=== PATIENT | male | born 1975 | race Caucasian/White ===

== ENCOUNTER 2021-08-27 08:33 | Inpatient (IN) | payer OTHER ==
[2021-08-27 09:23] VITALS: BMI 27.5
[2021-08-27] MEDS ORDERED: BISMUTH SUBSALICYLATE 524 MG/30 ML PO PRN (09:54)
[2021-08-27] MEDS ORDERED: LORazepam 1 MG TABLET PO PRN (09:54)
[2021-08-27] MEDS ORDERED: MAGNESIUM HYDROX 2400MG/30ML ORAL SUSPENSION 30 ML CUP PO PRN (09:54)
[2021-08-27] MEDS ORDERED: BENZOCAINE/MENTHOL (CHLORASEPTIC ) LOZENGE MM PRN (09:54)
[2021-08-27] MEDS ORDERED: IBUPROFEN 600 MG TABLET (FP) PO PRN (09:54)
[2021-08-27] MEDS ORDERED: methaDONE HCL 10 MG TABLET (FOR DETOX USE ONLY) PO ONE (09:54)
[2021-08-27] MEDS ORDERED: MAG HYDROX/AL HYDROX/SIMETH 30 ML UNIT-DOSE CUP PO PRN (09:54)
[2021-08-27] MEDS ORDERED: ACETAMINOPHEN 325 MG TABLET (FP) PO PRN ×2 (09:54)
[2021-08-27] MEDS ORDERED: MAGNESIUM CITRATE 300 ML BOTTLE PO PRN (09:54)
[2021-08-27] MEDS ORDERED: IBUPROFEN 400 MG TABLET (FP) PO PRN (09:54)
[2021-08-27] MEDS ORDERED: LOPERAMIDE HCL 2 MG CAPSULE PO PRN (09:54)
[2021-08-27] MEDS ORDERED: METHOCARBAMOL 500 MG TABLET PO PRN (09:54)
[2021-08-27] MEDS ORDERED: DICYCLOMINE HCL 10 MG CAPSULE PO PRN (09:54)
[2021-08-27] MEDS ORDERED: cloNIDine HCL 0.1 MG TABLET PO PRN (09:54)
[2021-08-27] MEDS ORDERED: ONDANSETRON *ODT* 4 MG TABLET SL PRN (09:54)
[2021-08-27] MEDS: LORazepam 2 MG TABLET PO SCH ×3 (11:14→22:35)
[2021-08-27] MEDS: PRENATAL VITAMINS W/ FOLIC ACID TABLET (FP) PO SCH (11:15)
[2021-08-27] MEDS: hydrOXYzine PAMOATE 25 MG CAPSULE (FP) PO SCH ×4 (11:22→22:35)
[2021-08-27] MEDS: NICOTINE 21 MG/24 HOURS TOPICAL PATCH TD SCH (11:26)
[2021-08-27] MEDS: BACITRACIN 0.9 GM PACKET TP SCH ×2 (11:26→22:35)
[2021-08-27] MEDS: NICOTINE 10 MG CARTRIDGE (INHALER) IH PRN (12:03)
[2021-08-27 14:38] LABS: HEMATOCRIT 40.1 % (35.4-49); HEMOGLOBIN 13.7 GM/dL (11.7-16.9); MCH 31.4 pg (25.7-33.7); MCHC 34.2 g/dl (32.0-35.9); MEAN CELL VOLUME 91.8 fl (80-96); MEAN PLT VOLUME 9.2 fl (7.5-11.1); PLATELET COUNT 150 10^3/uL (134-434); RBC 4.37 M/mm3 (4.00-5.60); RDW 13.3 % (11.9-15.9); WHITE BLOOD COUNT 5.9 K/mm3 (4.0-10.0)
[2021-08-27 14:45] LABS: ALBUMIN 3.8 g/dl (3.4-5.0)
[2021-08-27 14:47] LABS: CALCIUM 9.4 mg/dL (8.5-10.1)
[2021-08-27 14:48] LABS: BILIRUBIN,TOTAL 0.6 mg/dL (0.2-1); BLOOD UREA NITROGEN 10.3 mg/dL (7-18)
[2021-08-27 14:51] LABS: CREATININE 0.9 mg/dL (0.55-1.3)
[2021-08-27 14:52] LABS: TOT PROT 7.3 g/dl (6.4-8.2)
[2021-08-27] MEDS: MELATONIN 5 MG TABLETS PO SCH (22:35)
[2021-08-27] MEDS: THIAMINE HCL 100 MG TABLET (FP) PO SCH (22:35)
[2021-08-28] MEDS: hydrOXYzine PAMOATE 25 MG CAPSULE (FP) PO SCH ×5 (05:14→22:12)
[2021-08-28] MEDS: LORazepam 2 MG TABLET PO SCH ×4 (05:14→22:12)
[2021-08-28] MEDS ORDERED: methaDONE HCL 10 MG TABLET (FOR DETOX USE ONLY) ONE (08:46)
[2021-08-28] MEDS: BACITRACIN 0.9 GM PACKET TP SCH ×2 (10:12→22:12)
[2021-08-28] MEDS: PRENATAL VITAMINS W/ FOLIC ACID TABLET (FP) PO SCH (10:12)
[2021-08-28] MEDS: NICOTINE 21 MG/24 HOURS TOPICAL PATCH TD SCH (10:14)
[2021-08-28] MEDS: NICOTINE 10 MG CARTRIDGE (INHALER) IH PRN ×2 (13:26→17:46)
[2021-08-28] MEDS: MELATONIN 5 MG TABLETS PO SCH (22:12)
[2021-08-28] MEDS: THIAMINE HCL 100 MG TABLET (FP) PO SCH (22:12)
[2021-08-29] MEDS ORDERED: LORazepam 1 MG TABLET PO SCH (05:00)
[2021-08-29] MEDS: hydrOXYzine PAMOATE 25 MG CAPSULE (FP) PO SCH (05:40)
[2021-08-29 09:16] VITALS: BP 137/87; PULSE 83; TEMP 97.7
[2021-08-29] MEDS ORDERED: methaDONE HCL 10 MG TABLET (FOR DETOX USE ONLY) PO ONE (10:00)
[2021-08-30] MEDS ORDERED: LORazepam 0.5 MG TABLET PO PRN
[2021-08-30] MEDS ORDERED: LORazepam 0.5 MG TABLET PO SCH (05:00)
[2021-08-31] MEDS ORDERED: LORazepam 0.5 MG TABLET PO ONE (05:00)
[2021-08-31] MEDS ORDERED: methaDONE HCL 10 MG TABLET (FOR DETOX USE ONLY) PO ONE (10:00)
== END 2021-08-29 12:20 | disposition left against medical advice (07) | DRG 770 ==
LOC: YASAS 08:33 → Y3N 10:32
PROVIDERS: ADMIT Allergy & Immunology; ATTEND Surgery
PROC: HZ2ZZZZ Detoxification Services for Substance Abuse Treatment (ICD-10-PCS; principal; 2021-08-27)
DX: F11.23 Opioid dependence with withdrawal (principal); F10.230 Alcohol dependence with withdrawal, uncomplicated; F13.230 Sedative, hypnotic or anxiolytic dependence with withdrawal, uncomplicated; F14.10 Cocaine abuse, uncomplicated; F17.210 Nicotine dependence, cigarettes, uncomplicated; Z86.19 Personal history of other infectious and parasitic diseases; Z28.310 Unvaccinated for COVID-19
CPT/HCPCS: 36415; 80053; 84450; 84460; 85027; 86780; 93005; 93010; C9803-CS; U0003; U0005

== ENCOUNTER 2021-09-21 13:18 | Inpatient (IN) | payer OTHER ==
[2021-09-21 16:32] VITALS: BMI 24.3
[2021-09-21] MEDS ORDERED: MELATONIN 5 MG TABLETS PO PRN (18:20)
[2021-09-21] MEDS ORDERED: BENZOCAINE/MENTHOL (CHLORASEPTIC ) LOZENGE MM PRN (18:20)
[2021-09-21] MEDS ORDERED: ONDANSETRON *ODT* 4 MG TABLET SL PRN (18:20)
[2021-09-21] MEDS ORDERED: MAGNESIUM HYDROX 2400MG/30ML ORAL SUSPENSION 30 ML CUP PO PRN (18:20)
[2021-09-21] MEDS ORDERED: MAG HYDROX/AL HYDROX/SIMETH 30 ML UNIT-DOSE CUP PO PRN (18:20)
[2021-09-21] MEDS ORDERED: P-EPHED 60MG/TRIPROLIDI 2.5MG TABLET PO PRN (18:20)
[2021-09-21] MEDS ORDERED: guaiFENesin 200 MG/10 ML 10 ML UNIT-DOSE CUPS PO PRN (18:20)
[2021-09-21] MEDS ORDERED: MAGNESIUM CITRATE 300 ML BOTTLE PO PRN (18:20)
[2021-09-21] MEDS ORDERED: hydrOXYzine PAMOATE 25 MG CAPSULE (FP) PO PRN (18:20)
[2021-09-21] MEDS ORDERED: IBUPROFEN 600 MG TABLET (FP) PO PRN (18:20)
[2021-09-21] MEDS ORDERED: IBUPROFEN 400 MG TABLET (FP) PO PRN (18:20)
[2021-09-21] MEDS ORDERED: BISMUTH SUBSALICYLATE 524 MG/30 ML PO PRN (18:20)
[2021-09-21] MEDS ORDERED: DICYCLOMINE HCL 10 MG CAPSULE PO PRN (18:20)
[2021-09-21] MEDS ORDERED: LOPERAMIDE HCL 2 MG CAPSULE PO PRN (18:20)
[2021-09-21] MEDS ORDERED: ACETAMINOPHEN 325 MG TABLET (FP) PO PRN ×2 (18:20)
[2021-09-21] MEDS ORDERED: chlordiazePOXIDE HCL 25 MG CAPSULE PO PRN (18:22)
[2021-09-21] MEDS ORDERED: cloNIDine HCL 0.1 MG TABLET PO PRN (18:23)
[2021-09-21] MEDS ORDERED: methaDONE HCL 10 MG TABLET (FOR DETOX USE ONLY) PO ONE (18:23)
[2021-09-21] MEDS: chlordiazePOXIDE HCL 25 MG CAPSULE PO SCH (22:35)
[2021-09-21] MEDS: THIAMINE HCL 100 MG TABLET (FP) PO SCH (22:35)
[2021-09-22] MEDS: chlordiazePOXIDE HCL 25 MG CAPSULE PO SCH ×4 (05:57→22:21)
[2021-09-22] MEDS ORDERED: methaDONE HCL 10 MG TABLET (FOR DETOX USE ONLY) ONE (08:49)
[2021-09-22] MEDS: NICOTINE POLACRILEX 2 MG GUM BUC PRN ×3 (09:20→22:23)
[2021-09-22] MEDS: PRENATAL VITAMINS W/ FOLIC ACID TABLET (FP) PO SCH (10:25)
[2021-09-22] MEDS: NICOTINE 21 MG/24 HOURS TOPICAL PATCH TD PRN (10:26)
[2021-09-22] MEDS: THIAMINE HCL 100 MG TABLET (FP) PO SCH (22:20)
[2021-09-23] MEDS: chlordiazePOXIDE HCL 25 MG CAPSULE PO SCH ×4 (06:05→22:52)
[2021-09-23] MEDS: NICOTINE POLACRILEX 2 MG GUM BUC PRN ×5 (07:44→22:55)
[2021-09-23] MEDS ORDERED: methaDONE HCL 10 MG TABLET (FOR DETOX USE ONLY) PO ONE (10:00)
[2021-09-23] MEDS: PRENATAL VITAMINS W/ FOLIC ACID TABLET (FP) PO SCH (10:03)
[2021-09-23] MEDS: NICOTINE 21 MG/24 HOURS TOPICAL PATCH TD PRN (10:04)
[2021-09-23] MEDS: METHOCARBAMOL 500 MG TABLET PO PRN (18:07)
[2021-09-23] MEDS: THIAMINE HCL 100 MG TABLET (FP) PO SCH (22:52)
[2021-09-24] MEDS ORDERED: chlordiazePOXIDE HCL 10 MG CAPSULE PO PRN
[2021-09-24] MEDS: chlordiazePOXIDE HCL 10 MG CAPSULE PO SCH ×4 (05:20→22:15)
[2021-09-24] MEDS ORDERED: methaDONE HCL 10 MG TABLET (FOR DETOX USE ONLY) ONE (09:56)
[2021-09-24] MEDS: PRENATAL VITAMINS W/ FOLIC ACID TABLET (FP) PO SCH (10:21)
[2021-09-24] MEDS: NICOTINE POLACRILEX 2 MG GUM BUC PRN ×3 (10:25→22:15)
[2021-09-24 22:05] VITALS: RESP 18
[2021-09-24] MEDS: THIAMINE HCL 100 MG TABLET (FP) PO SCH (22:15)
[2021-09-25] MEDS: chlordiazePOXIDE HCL 10 MG CAPSULE PO SCH ×2 (05:34→20:24)
[2021-09-25] MEDS: NICOTINE POLACRILEX 2 MG GUM BUC PRN ×2 (08:49→15:14)
[2021-09-25 09:35] LABS: HEMATOCRIT 43.6 % (35.4-49); HEMOGLOBIN 14.7 GM/dL (11.7-16.9); MCHC 33.7 g/dl (32.0-35.9); MEAN CELL VOLUME 91.9 fl (80-96); MEAN PLT VOLUME 9.2 fl (7.5-11.1); PLATELET COUNT 126 10^3/uL (134-434); RBC 4.74 M/mm3 (4.00-5.60); RDW 13.3 % (11.9-15.9); WHITE BLOOD COUNT 4.4 K/mm3 (4.0-10.0)
[2021-09-25] MEDS ORDERED: methaDONE HCL 10 MG TABLET (FOR DETOX USE ONLY) PO ONE (10:00)
[2021-09-25 10:10] LABS: ALBUMIN 3.4 g/dl (3.4-5.0); CALCIUM 9.5 mg/dL (8.5-10.1)
[2021-09-25] MEDS: PRENATAL VITAMINS W/ FOLIC ACID TABLET (FP) PO SCH (10:12)
[2021-09-25] MEDS: METHOCARBAMOL 500 MG TABLET PO PRN (10:12)
[2021-09-25 10:14] LABS: CREATININE 0.9 mg/dL (0.55-1.3)
[2021-09-25 10:19] LABS: BILIRUBIN,TOTAL 0.4 mg/dL (0.2-1)
[2021-09-25] MEDS: NICOTINE 21 MG/24 HOURS TOPICAL PATCH TD PRN (10:35)
[2021-09-25 18:12] VITALS: BP 111/74; PULSE 101; TEMP 97.8
[2021-09-26] MEDS ORDERED: chlordiazePOXIDE HCL 10 MG CAPSULE PO ONE (05:00)
== END 2021-09-25 17:05 | disposition home or self-care (01) | DRG 773 ==
LOC: YASAS 13:18 → Y3N 19:44
PROVIDERS: ADMIT Allergy & Immunology; ATTEND Surgery
PROC: HZ2ZZZZ Detoxification Services for Substance Abuse Treatment (ICD-10-PCS; principal; 2021-09-21)
DX: F11.23 Opioid dependence with withdrawal (principal); F10.230 Alcohol dependence with withdrawal, uncomplicated; F17.210 Nicotine dependence, cigarettes, uncomplicated; Z28.310 Unvaccinated for COVID-19
CPT/HCPCS: 36415; 80053; 85027; 86780; 87811; C9803-CS; U0003; U0005

== ENCOUNTER 2021-12-12 13:23 | Inpatient (IN) | payer OTHER ==
[2021-12-12 14:29] VITALS: BMI 24.0
[2021-12-12] MEDS ORDERED: DICYCLOMINE HCL 10 MG CAPSULE PO PRN (15:55)
[2021-12-12] MEDS ORDERED: LOPERAMIDE HCL 2 MG CAPSULE PO PRN (15:55)
[2021-12-12] MEDS ORDERED: BISMUTH SUBSALICYLATE 524 MG/30 ML PO PRN (15:55)
[2021-12-12] MEDS ORDERED: MAGNESIUM HYDROX 2400MG/30ML ORAL SUSPENSION 30 ML CUP PO PRN (15:55)
[2021-12-12] MEDS ORDERED: ACETAMINOPHEN 325 MG TABLET (FP) PO PRN ×2 (15:55)
[2021-12-12] MEDS ORDERED: BENZOCAINE/MENTHOL (CHLORASEPTIC ) LOZENGE MM PRN (15:55)
[2021-12-12] MEDS ORDERED: NICOTINE 10 MG CARTRIDGE (INHALER) IH PRN (15:55)
[2021-12-12] MEDS ORDERED: MAGNESIUM CITRATE 300 ML BOTTLE PO PRN (15:55)
[2021-12-12] MEDS ORDERED: IBUPROFEN 400 MG TABLET (FP) PO PRN (15:55)
[2021-12-12] MEDS ORDERED: ONDANSETRON *ODT* 4 MG TABLET SL PRN (15:55)
[2021-12-12] MEDS ORDERED: NALOXONE HCL (KLOXXADO) 8 MG SPRAY NS PRN (15:55)
[2021-12-12] MEDS ORDERED: MAG HYDROX/AL HYDROX/SIMETH 30 ML UNIT-DOSE CUP PO PRN (15:55)
[2021-12-12] MEDS ORDERED: MAG HYDROX/AL HYDROX/SIMETH 30 ML UNIT-DOSE CUP ONE (16:23)
[2021-12-12] MEDS: THIAMINE HCL 100 MG TABLET (FP) PO SCH (22:27)
[2021-12-12] MEDS: MELATONIN 5 MG TABLETS PO SCH (22:27)
[2021-12-13] MEDS ORDERED: diazePAM 5 MG TABLET PO PRN (10:53)
[2021-12-13] MEDS ORDERED: cloNIDine HCL 0.1 MG TABLET PO PRN (10:53)
[2021-12-13] MEDS: diazePAM 5 MG TABLET PO SCH ×3 (11:23→22:22)
[2021-12-13] MEDS: PRENATAL VITAMINS W/ FOLIC ACID TABLET (FP) PO SCH (11:23)
[2021-12-13] MEDS: NICOTINE 21 MG/24 HOURS TOPICAL PATCH TD SCH (11:25)
[2021-12-13] MEDS ORDERED: methaDONE HCL 10 MG TABLET (FOR DETOX USE ONLY) PO ONE (11:30)
[2021-12-13] MEDS: NICOTINE POLACRILEX 4 MG GUM BUC PRN (11:34)
[2021-12-13 12:17] LABS: HEMATOCRIT 39.5 % (35.4-49); HEMOGLOBIN 13.1 GM/dL (11.7-16.9); MCH 30.7 pg (25.7-33.7); MCHC 33.1 g/dl (32.0-35.9); MEAN CELL VOLUME 92.9 fl (80-96); MEAN PLT VOLUME 8.9 fl (7.5-11.1); PLATELET COUNT 162 10^3/uL (134-434); RBC 4.25 M/mm3 (4.00-5.60); RDW 13.3 % (11.9-15.9); WHITE BLOOD COUNT 3.7 K/mm3 (4.0-10.0)
[2021-12-13 12:21] LABS: BLOOD UREA NITROGEN 13.3 mg/dL (7-18); CALCIUM 9.1 mg/dL (8.5-10.1)
[2021-12-13 12:25] LABS: CREATININE 0.8 mg/dL (0.55-1.3)
[2021-12-13 12:26] LABS: BILIRUBIN,TOTAL 0.5 mg/dL (0.2-1)
[2021-12-13] MEDS: hydrOXYzine PAMOATE 25 MG CAPSULE (FP) PO PRN ×2 (18:56→22:22)
[2021-12-13] MEDS: MELATONIN 5 MG TABLETS PO SCH (22:22)
[2021-12-13] MEDS: THIAMINE HCL 100 MG TABLET (FP) PO SCH (22:22)
[2021-12-14] MEDS: diazePAM 5 MG TABLET PO SCH ×4 (05:34→22:23)
[2021-12-14] MEDS: PRENATAL VITAMINS W/ FOLIC ACID TABLET (FP) PO SCH (10:05)
[2021-12-14] MEDS: METHOCARBAMOL 500 MG TABLET PO PRN ×2 (10:06→17:40)
[2021-12-14] MEDS: NICOTINE 21 MG/24 HOURS TOPICAL PATCH TD SCH (10:06)
[2021-12-14] MEDS: NICOTINE POLACRILEX 4 MG GUM BUC PRN ×2 (10:08→15:43)
[2021-12-14] MEDS: IBUPROFEN 600 MG TABLET (FP) PO PRN (17:40)
[2021-12-14] MEDS: THIAMINE HCL 100 MG TABLET (FP) PO SCH (22:23)
[2021-12-14] MEDS: MELATONIN 5 MG TABLETS PO SCH (22:23)
[2021-12-15] MEDS: diazePAM 5 MG TABLET PO SCH ×3 (05:51→22:15)
[2021-12-15] MEDS: hydrOXYzine PAMOATE 25 MG CAPSULE (FP) PO PRN (05:51)
[2021-12-15] MEDS: NICOTINE POLACRILEX 4 MG GUM BUC PRN ×4 (05:54→22:16)
[2021-12-15] MEDS: IBUPROFEN 600 MG TABLET (FP) PO PRN (08:44)
[2021-12-15] MEDS: METHOCARBAMOL 500 MG TABLET PO PRN (08:44)
[2021-12-15] MEDS ORDERED: methaDONE HCL 10 MG TABLET (FOR DETOX USE ONLY) PO ONE (10:00)
[2021-12-15] MEDS: PRENATAL VITAMINS W/ FOLIC ACID TABLET (FP) PO SCH (10:12)
[2021-12-15] MEDS: NICOTINE 21 MG/24 HOURS TOPICAL PATCH TD SCH (10:13)
[2021-12-15] MEDS: MELATONIN 5 MG TABLETS PO SCH (22:15)
[2021-12-15] MEDS: THIAMINE HCL 100 MG TABLET (FP) PO SCH (22:15)
[2021-12-16] MEDS: hydrOXYzine PAMOATE 25 MG CAPSULE (FP) PO PRN (05:58)
[2021-12-16] MEDS: diazePAM 5 MG TABLET PO SCH ×2 (05:58→18:31)
[2021-12-16] MEDS ORDERED: cloNIDine HCL 0.1 MG TABLET PO PRN (09:42)
[2021-12-16] MEDS: PRENATAL VITAMINS W/ FOLIC ACID TABLET (FP) PO SCH (10:42)
[2021-12-16] MEDS: NICOTINE 21 MG/24 HOURS TOPICAL PATCH TD SCH (10:43)
[2021-12-16] MEDS: METHOCARBAMOL 500 MG TABLET PO PRN (10:43)
[2021-12-16] MEDS: NICOTINE POLACRILEX 4 MG GUM BUC PRN (11:19)
[2021-12-16 13:04] VITALS: BP 128/79; PULSE 75; RESP 16; TEMP 97.3
[2021-12-17] MEDS ORDERED: diazePAM 5 MG TABLET PO ONE (06:00)
[2021-12-17] MEDS ORDERED: methaDONE HCL 10 MG TABLET (FOR DETOX USE ONLY) PO ONE (10:00)
== END 2021-12-16 18:37 | disposition left against medical advice (07) | DRG 770 ==
LOC: YASAS 13:23 → Y6N 16:21
PROVIDERS: ADMIT Allergy & Immunology; ATTEND Surgery
PROC: HZ2ZZZZ Detoxification Services for Substance Abuse Treatment (ICD-10-PCS; principal; 2021-12-12)
DX: F11.23 Opioid dependence with withdrawal (principal); F10.20 Alcohol dependence, uncomplicated; F14.20 Cocaine dependence, uncomplicated; F17.210 Nicotine dependence, cigarettes, uncomplicated; Z86.19 Personal history of other infectious and parasitic diseases; Z28.310 Unvaccinated for COVID-19; Z28.9 Immunization not carried out for unspecified reason
CPT/HCPCS: 36415; 80053; 85027; 86780; 87811; C9803-CS; U0003; U0005

== ENCOUNTER 2022-01-05 16:26 | Inpatient (IN) | payer OTHER ==
[2022-01-05 18:21] VITALS: BMI 23.7
[2022-01-05] MEDS ORDERED: cloNIDine HCL 0.1 MG TABLET PO PRN (18:40)
[2022-01-05] MEDS ORDERED: LOPERAMIDE HCL 2 MG CAPSULE PO PRN (18:40)
[2022-01-05] MEDS ORDERED: ACETAMINOPHEN 325 MG TABLET (FP) PO PRN ×2 (18:40)
[2022-01-05] MEDS ORDERED: DICYCLOMINE HCL 10 MG CAPSULE PO PRN (18:40)
[2022-01-05] MEDS ORDERED: MAGNESIUM CITRATE 300 ML BOTTLE PO PRN (18:40)
[2022-01-05] MEDS ORDERED: methaDONE HCL 10 MG TABLET (FOR DETOX USE ONLY) PO ONE ×2 (18:40→20:15)
[2022-01-05] MEDS ORDERED: IBUPROFEN 400 MG TABLET (FP) PO PRN (18:40)
[2022-01-05] MEDS ORDERED: NICOTINE 10 MG CARTRIDGE (INHALER) IH PRN (18:40)
[2022-01-05] MEDS ORDERED: BISMUTH SUBSALICYLATE 524 MG/30 ML PO PRN (18:40)
[2022-01-05] MEDS ORDERED: NALOXONE HCL (KLOXXADO) 8 MG SPRAY NS PRN (18:40)
[2022-01-05] MEDS ORDERED: BENZOCAINE/MENTHOL (CHLORASEPTIC ) LOZENGE MM PRN (18:40)
[2022-01-05] MEDS ORDERED: IBUPROFEN 600 MG TABLET (FP) PO PRN (18:40)
[2022-01-05] MEDS ORDERED: MAGNESIUM HYDROX 2400MG/30ML ORAL SUSPENSION 30 ML CUP PO PRN (18:40)
[2022-01-05] MEDS ORDERED: MAG HYDROX/AL HYDROX/SIMETH 30 ML UNIT-DOSE CUP PO PRN (18:40)
[2022-01-05] MEDS: THIAMINE HCL 100 MG TABLET (FP) PO SCH (23:49)
[2022-01-05] MEDS: diazePAM 5 MG TABLET PO SCH (23:49)
[2022-01-05] MEDS: MELATONIN 5 MG TABLETS PO SCH (23:49)
[2022-01-06] MEDS: diazePAM 5 MG TABLET PO SCH ×3 (06:03→17:38)
[2022-01-06] MEDS: PRENATAL VITAMINS W/ FOLIC ACID TABLET (FP) PO SCH (11:27)
[2022-01-06] MEDS: NICOTINE 14 MG/24 HOURS TOPICAL PATCH TD SCH (11:28)
[2022-01-06] MEDS: NICOTINE POLACRILEX 2 MG GUM BUC PRN (11:31)
[2022-01-06 15:35] LABS: HEMATOCRIT 41.6 % (35.4-49); HEMOGLOBIN 13.7 GM/dL (11.7-16.9); MCHC 32.9 g/dl (32.0-35.9); MEAN CELL VOLUME 94.1 fl (80-96); MEAN PLT VOLUME 10.1 fl (7.5-11.1); PLATELET COUNT 107 10^3/uL (134-434); RBC 4.42 M/mm3 (4.00-5.60); RDW 13.2 % (11.9-15.9); WHITE BLOOD COUNT 3.7 K/mm3 (4.0-10.0)
[2022-01-06 17:21] LABS: ALBUMIN 3.2 g/dl (3.4-5.0); BLOOD UREA NITROGEN 15.2 mg/dL (7-18)
[2022-01-06 17:24] LABS: CREATININE 0.9 mg/dL (0.55-1.3)
[2022-01-06 17:25] LABS: BILIRUBIN,TOTAL 0.5 mg/dL (0.2-1)
[2022-01-06 17:26] LABS: TOT PROT 6.2 g/dl (6.4-8.2)
[2022-01-06] MEDS: THIAMINE HCL 100 MG TABLET (FP) PO SCH (22:17)
[2022-01-06] MEDS: MELATONIN 5 MG TABLETS PO SCH (22:17)
[2022-01-06] MEDS: METHOCARBAMOL 500 MG TABLET PO PRN (22:18)
[2022-01-07] MEDS: diazePAM 5 MG TABLET PO SCH ×4 (00:16→22:51)
[2022-01-07] MEDS ORDERED: methaDONE HCL 10 MG TABLET (FOR DETOX USE ONLY) PO ONE (10:00)
[2022-01-07] MEDS: PRENATAL VITAMINS W/ FOLIC ACID TABLET (FP) PO SCH (10:10)
[2022-01-07] MEDS: NICOTINE 14 MG/24 HOURS TOPICAL PATCH TD SCH (10:11)
[2022-01-07] MEDS: METHOCARBAMOL 500 MG TABLET PO PRN ×2 (10:12→18:08)
[2022-01-07] MEDS: diazePAM 5 MG TABLET PO PRN (18:09)
[2022-01-07] MEDS: THIAMINE HCL 100 MG TABLET (FP) PO SCH (22:51)
[2022-01-07] MEDS: MELATONIN 5 MG TABLETS PO SCH (22:51)
[2022-01-08] MEDS: diazePAM 5 MG TABLET PO SCH ×2 (06:29→17:50)
[2022-01-08] MEDS: diazePAM 5 MG TABLET PO PRN (10:06)
[2022-01-08] MEDS: METHOCARBAMOL 500 MG TABLET PO PRN ×2 (10:06→17:52)
[2022-01-08] MEDS: PRENATAL VITAMINS W/ FOLIC ACID TABLET (FP) PO SCH (10:07)
[2022-01-08] MEDS: NICOTINE 14 MG/24 HOURS TOPICAL PATCH TD SCH (10:57)
[2022-01-08] MEDS: MELATONIN 5 MG TABLETS PO SCH (23:11)
[2022-01-08] MEDS: THIAMINE HCL 100 MG TABLET (FP) PO SCH (23:12)
[2022-01-09] MEDS ORDERED: diazePAM 5 MG TABLET PO ONE (06:00)
[2022-01-09 06:36] VITALS: RESP 18
[2022-01-09] MEDS ORDERED: methaDONE HCL 10 MG TABLET (FOR DETOX USE ONLY) PO ONE (10:00)
[2022-01-09] MEDS: NICOTINE 14 MG/24 HOURS TOPICAL PATCH TD SCH (10:19)
[2022-01-09] MEDS: METHOCARBAMOL 500 MG TABLET PO PRN ×2 (10:20→17:57)
[2022-01-09] MEDS: PRENATAL VITAMINS W/ FOLIC ACID TABLET (FP) PO SCH (10:20)
[2022-01-09] MEDS: THIAMINE HCL 100 MG TABLET (FP) PO SCH (22:38)
[2022-01-09] MEDS: MELATONIN 5 MG TABLETS PO SCH (22:38)
[2022-01-10] MEDS: METHOCARBAMOL 500 MG TABLET PO PRN (06:38)
[2022-01-10 06:42] VITALS: TEMP 97.3
[2022-01-10] MEDS: NICOTINE POLACRILEX 2 MG GUM BUC PRN (08:44)
[2022-01-10 10:25] VITALS: BP 123/99; PULSE 78
[2022-01-10] MEDS: NICOTINE 14 MG/24 HOURS TOPICAL PATCH TD SCH (10:56)
[2022-01-10] MEDS: PRENATAL VITAMINS W/ FOLIC ACID TABLET (FP) PO SCH (10:56)
== END 2022-01-10 12:53 | disposition home or self-care (01) | DRG 773 ==
LOC: YASAS 16:26 → Y6N 19:46
PROVIDERS: ADMIT Allergy & Immunology; ATTEND Surgery
PROC: HZ2ZZZZ Detoxification Services for Substance Abuse Treatment (ICD-10-PCS; principal; 2022-01-06)
DX: F11.23 Opioid dependence with withdrawal (principal); F10.230 Alcohol dependence with withdrawal, uncomplicated; F14.20 Cocaine dependence, uncomplicated; F17.213 Nicotine dependence, cigarettes, with withdrawal; Z86.19 Personal history of other infectious and parasitic diseases; Z28.310 Unvaccinated for COVID-19; Z28.9 Immunization not carried out for unspecified reason
CPT/HCPCS: 36415; 80053; 85027; 86780; C9803-CS; U0003; U0005

== ENCOUNTER 2022-04-11 13:49 | Inpatient (IN) | payer OTHER ==
[2022-04-11 15:53] VITALS: BMI 24.7
[2022-04-11] MEDS ORDERED: diazePAM 5 MG TABLET PO PRN (16:29)
[2022-04-11] MEDS ORDERED: IBUPROFEN 400 MG TABLET (FP) PO PRN (16:29)
[2022-04-11] MEDS ORDERED: LOPERAMIDE HCL 2 MG CAPSULE PO PRN (16:29)
[2022-04-11] MEDS ORDERED: BENZOCAINE/MENTHOL (CHLORASEPTIC ) LOZENGE MM PRN (16:29)
[2022-04-11] MEDS ORDERED: NICOTINE 10 MG CARTRIDGE (INHALER) IH PRN (16:29)
[2022-04-11] MEDS ORDERED: ONDANSETRON *ODT* 4 MG TABLET SL PRN (16:29)
[2022-04-11] MEDS ORDERED: DICYCLOMINE HCL 10 MG CAPSULE PO PRN (16:29)
[2022-04-11] MEDS ORDERED: POLYETHYLENE GLYCOL (HEALTHYLAX) 3350 17 GM PACKET PO PRN (16:29)
[2022-04-11] MEDS ORDERED: MAG HYDROX/AL HYDROX/SIMETH 30 ML UNIT-DOSE CUP PO PRN (16:29)
[2022-04-11] MEDS ORDERED: IBUPROFEN 600 MG TABLET (FP) PO PRN (16:29)
[2022-04-11] MEDS ORDERED: NALOXONE HCL (KLOXXADO) 8 MG SPRAY NS PRN (16:29)
[2022-04-11] MEDS ORDERED: BISMUTH SUBSALICYLATE 524 MG/30 ML PO PRN (16:29)
[2022-04-11] MEDS ORDERED: ACETAMINOPHEN 325 MG TABLET (FP) PO PRN ×2 (16:29)
[2022-04-11] MEDS ORDERED: MAGNESIUM HYDROX 2400MG/30ML ORAL SUSPENSION 30 ML CUP PO PRN (16:29)
[2022-04-11] MEDS ORDERED: methaDONE HCL 10 MG TABLET (FOR DETOX USE ONLY) PO ONE (17:00)
[2022-04-11] MEDS: diazePAM 5 MG TABLET PO SCH ×2 (17:09→22:25)
[2022-04-11] MEDS: MELATONIN 5 MG TABLETS PO SCH (22:24)
[2022-04-11] MEDS: hydrOXYzine PAMOATE 25 MG CAPSULE (FP) PO PRN (22:24)
[2022-04-11] MEDS: cloNIDine HCL 0.1 MG TABLET PO PRN (22:24)
[2022-04-11] MEDS: THIAMINE HCL 100 MG TABLET (FP) PO SCH (22:24)
[2022-04-12] MEDS: diazePAM 5 MG TABLET PO SCH ×4 (05:38→22:25)
[2022-04-12] MEDS: PRENATAL VITAMINS W/ FOLIC ACID TABLET (FP) PO SCH (10:21)
[2022-04-12 12:24] LABS: MCH 32.3 pg (25.7-33.7); MCHC 34.9 g/dl (32.0-35.9); MEAN CELL VOLUME 92.4 fl (80-96); MEAN PLT VOLUME 8.9 fl (7.5-11.1); PLATELET COUNT 158 10^3/uL (134-434); RBC 4.33 M/mm3 (4.00-5.60); WHITE BLOOD COUNT 5.7 K/mm3 (4.0-10.0)
[2022-04-12 12:33] LABS: ALBUMIN 3.3 g/dl (3.4-5.0)
[2022-04-12 12:35] LABS: CREATININE 0.9 mg/dL (0.55-1.3)
[2022-04-12 12:36] LABS: BILIRUBIN,TOTAL 0.7 mg/dL (0.2-1)
[2022-04-12 12:38] LABS: BLOOD UREA NITROGEN 10.4 mg/dL (7-18); CALCIUM 9.5 mg/dL (8.5-10.1)
[2022-04-12] MEDS: NICOTINE 21 MG/24 HOURS TOPICAL PATCH TD SCH (13:24)
[2022-04-12] MEDS: MELATONIN 5 MG TABLETS PO SCH (22:25)
[2022-04-12] MEDS: THIAMINE HCL 100 MG TABLET (FP) PO SCH (22:25)
[2022-04-13] MEDS: diazePAM 5 MG TABLET PO SCH ×3 (05:35→22:43)
[2022-04-13] MEDS ORDERED: methaDONE HCL 10 MG TABLET (FOR DETOX USE ONLY) PO ONE (10:00)
[2022-04-13] MEDS: PRENATAL VITAMINS W/ FOLIC ACID TABLET (FP) PO SCH (10:27)
[2022-04-13] MEDS: NICOTINE 21 MG/24 HOURS TOPICAL PATCH TD SCH (10:27)
[2022-04-13] MEDS: cloNIDine HCL 0.1 MG TABLET PO PRN (22:43)
[2022-04-13] MEDS: MELATONIN 5 MG TABLETS PO SCH (22:44)
[2022-04-13] MEDS: THIAMINE HCL 100 MG TABLET (FP) PO SCH (22:44)
[2022-04-14] MEDS: diazePAM 5 MG TABLET PO SCH ×2 (05:50→17:23)
[2022-04-14] MEDS: PRENATAL VITAMINS W/ FOLIC ACID TABLET (FP) PO SCH (10:31)
[2022-04-14] MEDS: NICOTINE 21 MG/24 HOURS TOPICAL PATCH TD SCH (10:33)
[2022-04-14] MEDS: hydrOXYzine PAMOATE 25 MG CAPSULE (FP) PO PRN ×2 (11:12→21:44)
[2022-04-14] MEDS: METHOCARBAMOL 500 MG TABLET PO PRN ×2 (11:12→21:44)
[2022-04-14] MEDS: MELATONIN 5 MG TABLETS PO SCH (21:45)
[2022-04-14] MEDS: THIAMINE HCL 100 MG TABLET (FP) PO SCH (21:45)
[2022-04-15] MEDS ORDERED: diazePAM 5 MG TABLET PO ONE (06:00)
[2022-04-15] MEDS ORDERED: methaDONE HCL 10 MG TABLET (FOR DETOX USE ONLY) PO ONE (10:00)
[2022-04-15] MEDS: hydrOXYzine PAMOATE 25 MG CAPSULE (FP) PO PRN (10:31)
[2022-04-15] MEDS: METHOCARBAMOL 500 MG TABLET PO PRN (10:31)
[2022-04-15] MEDS: NICOTINE 21 MG/24 HOURS TOPICAL PATCH TD SCH (10:34)
[2022-04-15] MEDS: PRENATAL VITAMINS W/ FOLIC ACID TABLET (FP) PO SCH (10:42)
[2022-04-15 17:13] VITALS: BP 121/77; PULSE 90; RESP 19; TEMP 97.3
== END 2022-04-15 17:12 | disposition home or self-care (01) | DRG 773 ==
LOC: YASAS 13:49 → Y3N 16:38
PROVIDERS: ADMIT Allergy & Immunology; ATTEND Surgery
PROC: HZ2ZZZZ Detoxification Services for Substance Abuse Treatment (ICD-10-PCS; principal; 2022-04-11)
DX: F11.23 Opioid dependence with withdrawal (principal); F10.230 Alcohol dependence with withdrawal, uncomplicated; F14.20 Cocaine dependence, uncomplicated; F17.210 Nicotine dependence, cigarettes, uncomplicated; F41.9 Anxiety disorder, unspecified; F32.A Depression, unspecified; F51.05 Insomnia due to other mental disorder; B18.2 Chronic viral hepatitis C; Z28.310 Unvaccinated for COVID-19; Z28.9 Immunization not carried out for unspecified reason
CPT/HCPCS: 36415; 80053; 85027; 86780; 87811; C9803-CS; U0003; U0005

== ENCOUNTER 2023-04-01 02:28 | Inpatient (IN) | payer OTHER ==
[2023-04-01 02:52] VITALS: BMI 23.2
[2023-04-01] MEDS ORDERED: BENZOCAINE/MENTHOL (CHLORASEPTIC ) LOZENGE MM PRN (03:57)
[2023-04-01] MEDS ORDERED: MAGNESIUM HYDROX 2400MG/30ML ORAL SUSPENSION 30 ML CUP PO PRN (03:57)
[2023-04-01] MEDS ORDERED: NALOXONE HCL 0.4 MG/ML VIAL IM PRN (03:57)
[2023-04-01] MEDS ORDERED: IBUPROFEN 400 MG TABLET (FP) PO PRN (03:57)
[2023-04-01] MEDS ORDERED: NALOXONE HCL (KLOXXADO) 8 MG SPRAY NS PRN (03:57)
[2023-04-01] MEDS ORDERED: guaiFENesin 600 MG TABLET.ER (FP) PO PRN (03:57)
[2023-04-01] MEDS ORDERED: BENZONATATE 200 MG CAPSULE PO PRN (03:57)
[2023-04-01] MEDS ORDERED: POLYETHYLENE GLYCOL (HEALTHYLAX) 3350 17 GM PACKET PO PRN (03:57)
[2023-04-01] MEDS: PRENATAL VITAMINS W/ FOLIC ACID TABLET (FP) PO SCH (11:01)
[2023-04-01] MEDS: NICOTINE 14 MG/24 HOURS TOPICAL PATCH TD SCH (11:01)
[2023-04-01] MEDS ORDERED: PRENATAL VITAMINS W/ FOLIC ACID TABLET (FP) PO ONE (11:20)
[2023-04-01] MEDS ORDERED: NICOTINE 14 MG/24 HOURS TOPICAL PATCH TD ONE (11:20)
[2023-04-01] MEDS: hydrOXYzine PAMOATE 25 MG CAPSULE (FP) PO PRN (13:08)
[2023-04-01] MEDS ORDERED: hydrOXYzine PAMOATE 25 MG CAPSULE (FP) PO ONE (13:10)
[2023-04-01] MEDS ORDERED: TUBERCULIN PPD 5 TU/0.1ML VIAL ID ONE (13:15)
[2023-04-01] MEDS: TUBERCULIN PPD 5 TU/0.1ML SYRINGE (IN PATIENT USE ONLY) ID ONE (13:18)
[2023-04-01] MEDS: THIAMINE HCL 100 MG TABLET (FP) PO SCH (21:39)
[2023-04-01] MEDS: MELATONIN 5 MG TABLETS PO SCH (21:39)
[2023-04-02 14:35] LABS: HEMOGLOBIN 12.9 GM/dL (11.7-16.9); MCH 31.5 pg (25.7-33.7); MEAN CELL VOLUME 92.6 fl (80-96); MEAN PLT VOLUME 9.3 fl (7.5-11.1); PLATELET COUNT 149 10^3/uL (134-434); RDW 12.9 % (11.9-15.9); WHITE BLOOD COUNT 5.7 K/mm3 (4.0-10.0)
[2023-04-02 14:40] LABS: POTASSIUM 5.5 mmol/L (3.5-5.1)
[2023-04-02 15:05] LABS: ALBUMIN 3.1 g/dl (3.4-5.0); BLOOD UREA NITROGEN 12.6 mg/dL (7-18); CREATININE 0.8 mg/dL (0.55-1.3)
[2023-04-02 15:07] LABS: BILIRUBIN,TOTAL 0.3 mg/dL (0.2-1); CALCIUM 9.2 mg/dL (8.5-10.1); TOT PROT 6.5 g/dl (6.4-8.2)
[2023-04-02] MEDS: ACETAMINOPHEN 325 MG TABLET (FP) PO PRN (15:49)
[2023-04-02] MEDS: MAG HYDROX/AL HYDROX/SIMETH 30 ML UNIT-DOSE CUP PO PRN (15:49)
[2023-04-03] MEDS: IBUPROFEN 600 MG TABLET (FP) PO PRN (12:14)
[2023-04-03] MEDS: ONDANSETRON *ODT* 4 MG TABLET SL PRN (13:23)
[2023-04-03] MEDS: cloNIDine HCL 0.1 MG TABLET PO PRN (13:23)
[2023-04-03] MEDS: LOPERAMIDE HCL 2 MG CAPSULE PO PRN (13:23)
[2023-04-03] MEDS: METHOCARBAMOL 500 MG TABLET PO PRN (13:23)
[2023-04-04] MEDS: NICOTINE POLACRILEX 2 MG GUM BUC PRN (00:11)
[2023-04-04] MEDS ORDERED: BUPRENORPHINE HCL 150 MCG, BUPRENORPHINE HCL 75 MCG BC PRN (09:50)
[2023-04-04] MEDS: NICOTINE 21 MG/24 HOURS TOPICAL PATCH TD SCH (10:38)
[2023-04-04] MEDS: BUPRENORPHINE HCL 150 MCG, BUPRENORPHINE HCL 75 MCG BC ONE (10:39)
[2023-04-04] MEDS: NICOTINE POLACRILEX 4 MG GUM BUC PRN (10:42)
[2023-04-05] MEDS: BUPRENORPHINE HCL 150 MCG, BUPRENORPHINE HCL 75 MCG BC SCH (06:33)
[2023-04-05 10:44] VITALS: RESP 16
[2023-04-05] MEDS: BUPRENORPHINE HCL 150 MCG, BUPRENORPHINE HCL 75 MCG BC PRN (14:36)
[2023-04-05 16:46] VITALS: BP 127/84; PULSE 83; TEMP 97.7
[2023-04-06] MEDS ORDERED: BUPRENORPHINE HCL 450 MCG FILM BC SCH (06:00)
[2023-04-07] MEDS ORDERED: BUPRENORPHINE/NALOXONE 4 MG/1 MG FILM PACKET SL SCH (06:00)
== END 2023-04-05 17:10 | disposition left against medical advice (07) | DRG 770 ==
LOC: YASAS 02:28 → Y3W 12:07
PROVIDERS: ADMIT Allergy & Immunology; ATTEND Psychiatry & Neurology Pain Medicine
PROC: HZ42ZZZ Group Counseling for Substance Abuse Treatment, Cognitive-Behavioral (ICD-10-PCS; principal; 2023-04-01)
DX: F11.20 Opioid dependence, uncomplicated (principal); F14.20 Cocaine dependence, uncomplicated; F12.20 Cannabis dependence, uncomplicated; F17.210 Nicotine dependence, cigarettes, uncomplicated; F41.9 Anxiety disorder, unspecified; F32.A Depression, unspecified; B18.2 Chronic viral hepatitis C
CPT/HCPCS: 36415; 80053; 80307; 84132; 85027; 86780; 87635; 93005; 93010; Q0162

== ENCOUNTER 2023-05-02 09:08 | Inpatient (IN) | payer OTHER ==
[2023-05-02 09:23] VITALS: BMI 24.5
[2023-05-02] MEDS ORDERED: ONDANSETRON *ODT* 4 MG TABLET SL PRN (09:51)
[2023-05-02] MEDS ORDERED: IBUPROFEN 400 MG TABLET (FP) PO PRN (09:51)
[2023-05-02] MEDS ORDERED: DICYCLOMINE HCL 10 MG CAPSULE PO PRN (09:51)
[2023-05-02] MEDS ORDERED: NALOXONE HCL 0.4 MG/ML VIAL IM PRN (09:51)
[2023-05-02] MEDS ORDERED: BISMUTH SUBSALICYLATE 524 MG/30 ML PO PRN (09:51)
[2023-05-02] MEDS ORDERED: guaiFENesin 600 MG TABLET.ER (FP) PO PRN (09:51)
[2023-05-02] MEDS ORDERED: NALOXONE HCL (KLOXXADO) 8 MG SPRAY NS PRN (09:51)
[2023-05-02] MEDS ORDERED: POLYETHYLENE GLYCOL (HEALTHYLAX) 3350 17 GM PACKET PO PRN (09:51)
[2023-05-02] MEDS ORDERED: MAGNESIUM HYDROX 2400MG/30ML ORAL SUSPENSION 30 ML CUP PO PRN (09:51)
[2023-05-02] MEDS ORDERED: MAG HYDROX/AL HYDROX/SIMETH 30 ML UNIT-DOSE CUP PO PRN (09:51)
[2023-05-02] MEDS ORDERED: LOPERAMIDE HCL 2 MG CAPSULE PO PRN (09:51)
[2023-05-02] MEDS ORDERED: BENZONATATE 200 MG CAPSULE PO PRN (09:51)
[2023-05-02] MEDS ORDERED: ACETAMINOPHEN 325 MG TABLET (FP) PO PRN (09:51)
[2023-05-02] MEDS ORDERED: BENZOCAINE/MENTHOL (CHLORASEPTIC ) LOZENGE MM PRN (09:51)
[2023-05-02] MEDS ORDERED: METHOCARBAMOL 500 MG TABLET ONE (10:22)
[2023-05-02] MEDS ORDERED: PRENATAL VITAMINS W/ FOLIC ACID TABLET (FP) PO ONE (10:22)
[2023-05-02] MEDS: PRENATAL VITAMINS W/ FOLIC ACID TABLET (FP) PO SCH (10:23)
[2023-05-02] MEDS: METHOCARBAMOL 500 MG TABLET PO PRN (10:24)
[2023-05-02] MEDS: NICOTINE 21 MG/24 HOURS TOPICAL PATCH TD SCH (11:09)
[2023-05-02] MEDS ORDERED: NICOTINE 21 MG/24 HOURS TOPICAL PATCH ONE (11:18)
[2023-05-02] MEDS: hydrOXYzine PAMOATE 25 MG CAPSULE (FP) PO PRN (22:25)
[2023-05-02] MEDS: MELATONIN 5 MG TABLETS PO SCH (22:25)
[2023-05-02] MEDS: THIAMINE HCL 100 MG TABLET (FP) PO SCH (22:25)
[2023-05-03] MEDS ORDERED: BUPRENORPHINE HCL 150 MCG, BUPRENORPHINE HCL 75 MCG BC PRN (09:30)
[2023-05-03] MEDS: BUPRENORPHINE HCL 150 MCG, BUPRENORPHINE HCL 75 MCG BC ONE (09:53)
[2023-05-03] MEDS: diazePAM 5 MG TABLET PO PRN (09:54)
[2023-05-03 12:58] LABS: HEMATOCRIT 39.4 % (35.4-49); HEMOGLOBIN 13.4 GM/dL (11.7-16.9); MCH 31.3 pg (25.7-33.7); MCHC 33.9 g/dl (32.0-35.9); MEAN CELL VOLUME 92.3 fl (80-96); MEAN PLT VOLUME 8.7 fl (7.5-11.1); PLATELET COUNT 154 10^3/uL (134-434); RBC 4.27 M/mm3 (4.00-5.60); RDW 13.5 % (11.9-15.9)
[2023-05-03 13:26] LABS: POTASSIUM 3.9 mmol/L (3.5-5.1)
[2023-05-03] MEDS ORDERED: cloNIDine HCL 0.1 MG TABLET PO PRN (13:30)
[2023-05-03 13:31] LABS: CALCIUM 8.8 mg/dL (8.5-10.1)
[2023-05-03 13:32] LABS: ALBUMIN 3.2 g/dl (3.4-5.0); BLOOD UREA NITROGEN 6.6 mg/dL (7-18)
[2023-05-03 13:35] LABS: CREATININE 0.8 mg/dL (0.55-1.3)
[2023-05-03 13:36] LABS: BILIRUBIN,TOTAL 0.3 mg/dL (0.2-1); TOT PROT 6.9 g/dl (6.4-8.2)
[2023-05-03] MEDS: IBUPROFEN 600 MG TABLET (FP) PO PRN (22:11)
[2023-05-04] MEDS ORDERED: BUPRENORPHINE HCL 150 MCG, BUPRENORPHINE HCL 75 MCG BC PRN
[2023-05-04] MEDS: BUPRENORPHINE HCL 150 MCG, BUPRENORPHINE HCL 75 MCG BC SCH (06:42)
[2023-05-05] MEDS ORDERED: BUPRENORPHINE HCL 450 MCG FILM BC PRN
[2023-05-05] MEDS: BUPRENORPHINE HCL 450 MCG FILM BC SCH (06:24)
[2023-05-05] MEDS: cloNIDine HCL 0.1 MG TABLET PO PRN (09:56)
[2023-05-05] MEDS: amLODIPine BESYLATE 5 MG TABLET (FP) PO SCH (12:44)
[2023-05-05] MEDS: NICOTINE POLACRILEX 2 MG GUM BUC PRN (17:29)
[2023-05-06] MEDS: BUPRENORPHINE/NALOXONE 4 MG/1 MG FILM PACKET SL SCH (05:26)
[2023-05-06 23:11] VITALS: RESP 18
[2023-05-07] MEDS: BUPRENORPHINE/NALOXONE 8 MG/2 MG FILM PACKET SL ONE (06:51)
[2023-05-07 09:12] VITALS: BP 144/90; PULSE 78; TEMP 97.8
== END 2023-05-07 10:43 | disposition home or self-care (01) | DRG 773 ==
LOC: YASAS 09:08 → Y6N 10:25
PROVIDERS: ADMIT Allergy & Immunology; ATTEND Surgery
PROC: HZ2ZZZZ Detoxification Services for Substance Abuse Treatment (ICD-10-PCS; principal; 2023-05-02)
DX: F11.23 Opioid dependence with withdrawal (principal); F10.230 Alcohol dependence with withdrawal, uncomplicated; F14.20 Cocaine dependence, uncomplicated; F16.20 Hallucinogen dependence, uncomplicated; F17.210 Nicotine dependence, cigarettes, uncomplicated; F41.9 Anxiety disorder, unspecified; F32.A Depression, unspecified; R73.9 Hyperglycemia, unspecified; Z86.19 Personal history of other infectious and parasitic diseases
CPT/HCPCS: 36415; 80053; 80305; 80307; 83036; 85027; 86780; 87635; 87811; 93005; 93010

== ENCOUNTER 2023-11-27 19:51 | Inpatient (IN) | payer OTHER ==
[2023-11-27 20:13] VITALS: BMI 21.7
[2023-11-27] MEDS ORDERED: BENZOCAINE/MENTHOL (CHLORASEPTIC ) LOZENGE MM PRN (20:53)
[2023-11-27] MEDS ORDERED: NALOXONE HCL 0.4 MG/ML VIAL IM PRN (20:53)
[2023-11-27] MEDS ORDERED: hydrOXYzine PAMOATE 25 MG CAPSULE (FP) PO PRN (20:53)
[2023-11-27] MEDS ORDERED: MAGNESIUM HYDROX 2400MG/30ML ORAL SUSPENSION 30 ML CUP PO PRN (20:53)
[2023-11-27] MEDS ORDERED: NICOTINE POLACRILEX 4 MG GUM BUC PRN (20:53)
[2023-11-27] MEDS ORDERED: ONDANSETRON *ODT* 4 MG TABLET SL PRN (20:53)
[2023-11-27] MEDS ORDERED: guaiFENesin 600 MG TABLET.ER (FP) PO PRN (20:53)
[2023-11-27] MEDS ORDERED: LOPERAMIDE HCL 2 MG CAPSULE PO PRN (20:53)
[2023-11-27] MEDS ORDERED: NALOXONE (NARCAN) HCL 4 MG/0.1 ML SPRAY NS PRN (20:53)
[2023-11-27] MEDS ORDERED: IBUPROFEN 400 MG TABLET (FP) PO PRN (20:53)
[2023-11-27] MEDS ORDERED: IBUPROFEN 600 MG TABLET (FP) PO PRN (20:53)
[2023-11-27] MEDS ORDERED: POLYETHYLENE GLYCOL (HEALTHYLAX) 3350 17 GM PACKET PO PRN (20:53)
[2023-11-27] MEDS ORDERED: MAG HYDROX/AL HYDROX/SIMETH 30 ML UNIT-DOSE CUP PO PRN (20:53)
[2023-11-27] MEDS ORDERED: ACETAMINOPHEN 325 MG TABLET (FP) PO PRN (20:53)
[2023-11-27] MEDS ORDERED: BENZONATATE 200 MG CAPSULE PO PRN (20:53)
[2023-11-27] MEDS ORDERED: BISMUTH SUBSALICYLATE 524 MG/30 ML PO PRN (20:53)
[2023-11-27] MEDS ORDERED: DICYCLOMINE HCL 10 MG CAPSULE ONE (21:03)
[2023-11-27] MEDS ORDERED: METHOCARBAMOL 500 MG TABLET ONE (21:03)
[2023-11-27] MEDS ORDERED: hydrOXYzine PAMOATE 25 MG CAPSULE (FP) PO ONE (21:03)
[2023-11-27] MEDS: DICYCLOMINE HCL 10 MG CAPSULE PO PRN (21:11)
[2023-11-27] MEDS: hydrOXYzine PAMOATE 50 MG CAPSULE (FP) PO ONE (21:11)
[2023-11-27] MEDS: METHOCARBAMOL 500 MG TABLET PO PRN (21:12)
[2023-11-27] MEDS: MELATONIN 5 MG TABLETS PO SCH (22:39)
[2023-11-27] MEDS: THIAMINE 100 MG TABLET PO SCH (22:40)
[2023-11-28] MEDS ORDERED: methaDONE HCL 40 MG DISPERSABLE TABLET PO SCH (06:30)
[2023-11-28] MEDS: methaDONE 40 MG, methaDONE 30 MG PO SCH (06:48)
[2023-11-28] MEDS: PRENATAL VITAMINS W/ FOLIC ACID TABLET (FP) PO SCH (09:37)
[2023-11-28] MEDS: NICOTINE 21 MG/24 HOURS TOPICAL PATCH TD SCH (09:38)
[2023-11-28] MEDS ORDERED: diazePAM 5 MG TABLET PO PRN (10:14)
[2023-11-28] MEDS: diazePAM 5 MG TABLET PO SCH (11:06)
[2023-11-28 14:56] LABS: HEMATOCRIT 40.9 % (35.4-49); HEMOGLOBIN 13.5 GM/dL (11.7-16.9); MCH 30.3 pg (25.7-33.7); MEAN CELL VOLUME 91.9 fl (80-96); MEAN PLT VOLUME 8.2 fl (7.5-11.1); PLATELET COUNT 147 10^3/uL (134-434); RBC 4.45 M/mm3 (4.00-5.60); RDW 13.3 % (11.9-15.9); WHITE BLOOD COUNT 5.2 K/mm3 (4.0-10.0)
[2023-11-28 15:01] LABS: CHLORIDE 103 mmol/L (98-107); POTASSIUM 4.4 mmol/L (3.5-5.1); SODIUM 140 mmol/L (136-145)
[2023-11-28 15:07] LABS: ALBUMIN 3.4 g/dl (3.4-5.0); ANION GAP 4 mmol/L (4-13); BLOOD UREA NITROGEN 16.3 mg/dL (7-18); CALCIUM 9.7 mg/dL (8.5-10.1); CO2 32 mmol/L (21-32); GLUCOSE,RANDOM 78 mg/dL (74-106)
[2023-11-28 15:09] LABS: CREATININE 0.8 mg/dL (0.55-1.3); SGOT/AST 83 U/L (15-37); SGPT/ALT 89 U/L (13-61)
[2023-11-28 15:11] LABS: BILIRUBIN,TOTAL 0.7 mg/dL (0.2-1); TOT PROT 7.3 g/dl (6.4-8.2)
[2023-11-28 15:12] LABS: ALK PHOS 78 U/L (45-117)
[2023-11-30] MEDS: diazePAM 5 MG TABLET PO SCH (05:52)
[2023-12-01] MEDS: diazePAM 5 MG TABLET PO SCH (05:49)
[2023-12-01 20:55] VITALS: TEMP 97.6
[2023-12-02] MEDS: diazePAM 5 MG TABLET PO ONE (05:19)
[2023-12-02 08:38] VITALS: BP 100/64; PULSE 81; RESP 18
[2023-12-02] MEDS: NALOXONE (NYS OPIOID OVERDOSE PROGRAM) 4 MG/0.1 ML SPRAY NS ONE (10:29)
== END 2023-12-02 10:20 | disposition home or self-care (01) | DRG 773 ==
LOC: YASAS 19:51 → Y3N 21:40
PROVIDERS: ADMIT Allergy & Immunology; ATTEND Surgery
PROC: HZ2ZZZZ Detoxification Services for Substance Abuse Treatment (ICD-10-PCS; principal; 2023-11-27)
DX: F10.230 Alcohol dependence with withdrawal, uncomplicated (principal); F11.20 Opioid dependence, uncomplicated; F14.20 Cocaine dependence, uncomplicated; F17.210 Nicotine dependence, cigarettes, uncomplicated; R74.01 Elevation of levels of liver transaminase levels; Z86.19 Personal history of other infectious and parasitic diseases; Z91.199 Patient's noncompliance with other medical treatment and regimen due to unspecified reason; Z56.0 Unemployment, unspecified; Z59.00 Homelessness unspecified
CPT/HCPCS: 36415; 80053; 80305; 80307; 85027; 86780; 93005; 93010

== ENCOUNTER 2023-12-08 08:50 | Emergency (ER) | payer OTHER ==
[2023-12-08 09:24] VITALS: BP 142/78; PULSE 80; RESP 18; TEMP 97.8; BMI 21.7
[2023-12-08] MEDS ORDERED: METHOCARBAMOL 500 MG TABLET ONE (10:07)
[2023-12-08] MEDS ORDERED: LIDOCAINE 4% PATCH TP ONE (10:07)
[2023-12-08] MEDS: METHOCARBAMOL 500 MG TABLET PO ONE (10:12)
[2023-12-08] MEDS: LIDOCAINE 4% PATCH TP ONE (10:12)
[2023-12-08] MEDS ORDERED: LIDOCAINE PATCH REMOVAL MC ONE (22:00)
== END 2023-12-08 11:30 | disposition left against medical advice (07) ==
LOC: JER 08:50
DX: M54.9 Dorsalgia, unspecified (principal); G89.29 Other chronic pain; M79.10 Myalgia, unspecified site
CPT/HCPCS: 99283-25

== ENCOUNTER 2023-12-11 01:19 | Inpatient (IN) | payer OTHER ==
[2023-12-11] MEDS ORDERED: VANCOMYCIN 1 GRAM (PRE-DOCKED) 1,000 MG/250 ML BAG IVPB ONE (02:07)
[2023-12-11] MEDS ORDERED: CLINDAMYCIN 600MG PREMIX IVPB 600 MG/50 ML BAG IVPB ONE (02:07)
[2023-12-11] MEDS ORDERED: PIPERACILLIN/TAZOB 3.375 GM 3.375 GM/50 ML BAG IVPB ONE (02:08)
[2023-12-11] MEDS: PIPERACILLIN/TAZOB 3.375 GM 3.375 GM in DEXTROSE 5%-WATER - 50 ML IVPB ONE (02:44)
[2023-12-11] MEDS: CLINDAMYCIN 600MG PREMIX IVPB 600 MG/50 ML BAG IVPB ONE (02:58)
[2023-12-11] MEDS: VANCOMYCIN 1,000 MG in DEXTROSE 5%-WATER - 250 ML IVPB ONE (03:23)
[2023-12-11 03:27] LABS: BASO % 0.1 % (0-2.0); EOS % 0.7 % (0-4.5); HEMATOCRIT 31.2 % (35.4-49); HEMOGLOBIN 10.4 GM/dL (11.7-16.9); LYMPH % 6.8 % (8-40); MCH 30.5 pg (25.7-33.7); MCHC 33.5 g/dl (32.0-35.9); MEAN CELL VOLUME 91.1 fl (80-96); MONO % 9.5 % (3.8-10.2); NEUT % 82.9 % (42.8-82.8); PLATELET COUNT 252 10^3/uL (134-434); RBC 3.42 M/mm3 (4.00-5.60); RDW 13.8 % (11.9-15.9); WHITE BLOOD COUNT 11.3 K/mm3 (4.0-10.0)
[2023-12-11 03:42] LABS: CALCIUM 9.1 mg/dL (8.5-10.1)
[2023-12-11 03:43] LABS: BLOOD UREA NITROGEN 12.5 mg/dL (7-18)
[2023-12-11 03:46] LABS: CREATININE 0.7 mg/dL (0.55-1.3)
[2023-12-11 03:47] LABS: BILIRUBIN,TOTAL 0.4 mg/dL (0.2-1); TOT PROT 6.6 g/dl (6.4-8.2)
[2023-12-11] MEDS ORDERED: ACETAMINOPHEN INJECTION 100 ML ONE (03:57)
[2023-12-11] MEDS: ACETAMINOPHEN 1000 MG/100 ML BAG IVPB ONE (04:03)
[2023-12-11 04:53] LABS: ALBUMIN 2.3 g/dl (3.4-5.0)
[2023-12-11] MEDS: SODIUM CHLORIDE 1,000 ML IV SCH (08:42)
[2023-12-11] MEDS ORDERED: cloNIDine HCL 0.1 MG TABLET PO PRN (09:07)
[2023-12-11] MEDS ORDERED: ACETAMINOPHEN 1000 MG/100 ML BAG IVPB PRN (09:08)
[2023-12-11] MEDS: methaDONE HCL 10 MG TABLET PO ONE (09:40)
[2023-12-11] MEDS: THIAMINE 100 MG TABLET PO SCH (09:40)
[2023-12-11] MEDS: FOLIC ACID 1 MG TABLET (FP) PO SCH (09:41)
[2023-12-11] MEDS: ENOXAPARIN NA (PORCINE) 40 MG/0.4 ML DISP.SYRIN SQ SCH (09:41)
[2023-12-11] MEDS: PIPERACILLIN/TAZOB 3.375 GM 3.375 GM in DEXTROSE 5%-WATER - 50 ML IVPB SCH (09:42)
[2023-12-11] MEDS: NICOTINE 14 MG/24 HOURS TOPICAL PATCH TD SCH (09:44)
[2023-12-11] MEDS: LIDOCAINE 5% TOPICAL PATCH TP SCH (09:45)
[2023-12-11] MEDS ORDERED: PIPERACILLIN/TAZOB 3.375 GM 3.375 GM in DEXTROSE 5%-WATER - 50 ML IVPB SCH (10:00)
[2023-12-11 11:25] LABS: POTASSIUM 4.4 mmol/L (3.5-5.1)
[2023-12-11 11:26] LABS: CALCIUM 8.7 mg/dL (8.5-10.1)
[2023-12-11 11:27] LABS: BLOOD UREA NITROGEN 9.8 mg/dL (7-18)
[2023-12-11 11:30] LABS: CREATININE 0.5 mg/dL (0.55-1.3)
[2023-12-11 12:16] VITALS: RESP 18; BMI 19.9
[2023-12-11 12:20] LABS: HIV INTERPRETATION NEGATIVE (NEGATIVE)
[2023-12-11] MEDS: KETOROLAC TROMETHAMINE 15 MG/ML VIAL IVPUSH ONE (13:49)
[2023-12-11] MEDS ORDERED: VANCOMYCIN/WATER FOR INJ (PEG) 1,000 MG/200 ML BAG IVPB SCH (15:00)
[2023-12-11] MEDS: VANCOMYCIN/WATER 1250 MG 1,250 MG/250 ML BAG IVPB SCH (15:36)
[2023-12-11] MEDS: PIPERACILLIN/TAZOB 4.5 GM 4.5 GM in DEXTROSE 5%-WATER 100 ML IVPB SCH (18:35)
[2023-12-11 19:01] VITALS: BP 123/58; PULSE 78; TEMP 98.9
[2023-12-11] MEDS ORDERED: LIDOCAINE PATCH REMOVAL MC SCH (22:00)
[2023-12-13] MEDS ORDERED: methaDONE HCL 10 MG TABLET PO ONE (10:00)
[2023-12-15] MEDS ORDERED: methaDONE HCL 10 MG TABLET PO ONE (10:00)
== END 2023-12-11 19:28 | disposition short-term general hospital (02) | DRG 720 ==
LOC: JER 01:19 → JERBED 04:45 → J6S 08:23
PROVIDERS: ADMIT Student in an Organized Health Care Education/Training Program; ATTEND Student in an Organized Health Care Education/Training Program
DX: A41.9 Sepsis, unspecified organism (principal); I38 Endocarditis, valve unspecified; L03.113 Cellulitis of right upper limb; F11.10 Opioid abuse, uncomplicated; F41.9 Anxiety disorder, unspecified; F43.10 Post-traumatic stress disorder, unspecified; F32.A Depression, unspecified; F19.10 Other psychoactive substance abuse, uncomplicated; B18.2 Chronic viral hepatitis C; L03.115 Cellulitis of right lower limb; F14.10 Cocaine abuse, uncomplicated
CPT/HCPCS: 36415; 73090-TC-RT-FY; 73110-TC-RT-FY; 73130-TC-RT-FY; 73630-TC-RT-FY; 80048; 80053; 82550; 83605; 84436; 84443; 85025; 85651; 86140; 86704; 86705; 86803; 87040; 87186; 87340; 87350; 87389; 87517; 87522; 87635; 93005; 93010; 93971; 93971-TC; 99285-25; J0131